=== PATIENT | female | born 1975 | race Hispanic/Latino ===

== ENCOUNTER 2022-12-24 05:35 | Observation (INO) | payer OTHER ==
[2022-12-20 14:59] LABS: BASOPHILS % (AUTO) 0.6 % (0.0-5.0); EOSINOPHILS % (AUTO) 0.6 % (0.0-8.0); HEMATOCRIT 36.1 % (36-48); LYMPHOCYTES % (AUTO) 19.5 % (21.0-51.0); MEAN CORPUSCULAR HEMOGLOBIN 27.6 pg (27.0-33.0); MEAN CORPUSCULAR HGB CONC 33.5 g/dL (32.0-36.0); MEAN CORPUSCULAR VOLUME 82.2 fL (79-99); NEUTROPHILS % (AUTO) 72.9 % (40.0-77.0); PLATELET COUNT (AUTO) 126 K/uL (130-400); RED BLOOD CELL COUNT(AUTO) 4.39 MIL/uL (4.00-5.50); RED CELL DISTRIBUTION WIDTH 13.8 % (11.0-15.5); WHITE BLOOD COUNT (AUTO) 13.7 K/uL (4.8-10.8)
[2022-12-20 15:06] LABS: APPEARANCE,URINE CLOUDY (CLEAR); BILIRUBIN,URINE NEGATIVE (NEGATIVE); COLOR,URINE YELLOW (YELLOW); GLUCOSE, URINE (UA) 200 mg/dL (NEGATIVE); KETONES,URINE 5 mg/dL (NEGATIVE); LEUKOCYTE ESTERASE ,URINE 250 Leu/uL (NEGATIVE); NITRATE,URINE NEGATIVE (NEGATIVE); OCCULT BLOOD,URINE NEGATIVE (NEGATIVE); PH,URINE 5.5 (5.0-8.0); PROTEIN,URINE 10 mg/dL (NEGATIVE); UROBILINOGEN,URINE 0.2 mg/dL (0.2-1.0)
[2022-12-20 15:16] LABS: BACTERIA,URINE MOD /HPF (None Seen); MUCUS,URINE FEW LPF (None Seen); SQUAMOUS EPITHELIAL CELL,UR FEW /HPF (0-2)
[2022-12-20 15:24] VITALS: BP 142/73
[~2022-12-24] VITALS: Ht 157.5 cm; Wt 70.8 kg
[2022-12-24] VITALS (27 sets, daily range): BP systolic 128–177; BP diastolic 51–81
[~2022-12-24 05:35] MED LIST: AEC81 PO; ASCORBIC ACID PO; ATOR40TA71 PO; CLOP75TA32 PO; ERGO500093 PO; FAMO40TA7 PO; FERR-82 PO; GLIP10TA19 PO; HYDR-4153 PO; HYDR25TA PO; IRON PO; LEVO100C4 PO; LOSA100T58 PO; METF-444 PO; METO100T14 PO; TIRZ5PEN SQ
[2022-12-24] MEDS ORDERED: 0.9%NACL 1000ML 1,000 ML IV ONE (05:42)
[2022-12-24] MEDS ORDERED: CEFAZOLIN SODIUM 2 GM VIAL IVPB SCH (06:00)
[2022-12-24] MEDS ORDERED: ONDANSETRON 4MG INJ ONE (07:17)
[2022-12-24] MEDS ORDERED: LIDOCAINE PF 100MG/5ML (2%) SYRINGE 5ML ONE (07:17)
[2022-12-24] MEDS ORDERED: PROPOFOL 10 MG/ML 20ML VIAL IV ONE (07:17)
[2022-12-24] MEDS ORDERED: MIDAZOLAM HCL 1 MG/ML 2ML VIAL ONE (07:17)
[2022-12-24] MEDS ORDERED: ROCURONIUM 10MG/1ML SYR 10 MG/ML ML ONE (07:17)
[2022-12-24] MEDS ORDERED: FENTANYL CITRATE PF 50 MCG/1 ML 2ML VIAL ONE ×4 (07:18→10:13)
[2022-12-24] MEDS ORDERED: CEFAZOLIN SODIUM 2 GM VIAL IVPB ONE (07:50)
[2022-12-24] MEDS ORDERED: PHENYLEPHRINE HCL 10 MG/ML 1ML VIAL IV ONE (08:09)
[2022-12-24] MEDS ORDERED: 0.9%NACL 10ML VIAL ONE (08:25)
[2022-12-24] MEDS ORDERED: GLYCOPYRROLATE 1 MG/5 ML SYRINGE ONE (08:35)
[2022-12-24] MEDS ORDERED: NEOSTIGMINE 5MG/5ML SYR IV ONE (08:35)
[2022-12-24] MEDS ORDERED: MORPHINE 2 MG SYG ONE ×2 (09:18→09:28)
[2022-12-24] MEDS ORDERED: MEPERIDINE-PF 75 MG/ML SYG IM PRN (11:30)
[2022-12-24] MEDS ORDERED: PROMETHAZINE HCL 25 MG/ML 1ML AMPULE IM PRN ×2 (11:30)
[2022-12-24] MEDS ORDERED: BISACODYL 10 MG SUPP.RECT RC PRN (11:30)
[2022-12-24] MEDS ORDERED: SIMETHICONE 80 MG TAB.CHEW PO PRN (11:30)
[2022-12-24] MEDS ORDERED: IBUPROFEN 600 MG TABLET PO PRN (11:30)
[2022-12-24] MEDS ORDERED: DOCUSATE SODIUM 100 MG CAP PO PRN (11:30)
[2022-12-24] MEDS: INSULIN HUMULIN R 100 UNIT/ML 3ML SQ SCH ×2 (11:48→21:00)
[2022-12-24] MEDS: CEPHALEXIN 500 MG CAPSULE PO SCH ×3 (13:41→21:07)
[2022-12-24] MEDS: LACTATED RINGERS 1000ML 1,000 ML IV SCH (18:35)
[2022-12-24] MEDS: ACETAMINOPHEN WITH CODEINE 1 TAB TAB PO PRN (19:54)
[2022-12-25] MEDS: LACTATED RINGERS 1000ML 1,000 ML IV SCH (00:35)
[2022-12-25] MEDS: ACETAMINOPHEN WITH CODEINE 1 TAB TAB PO PRN (03:20)
[2022-12-25 03:58] VITALS: BP 156/76
[2022-12-25 06:20] LABS: BASOPHILS % (AUTO) 0.3 % (0.0-5.0); EOSINOPHILS % (AUTO) 0.6 % (0.0-8.0); HEMATOCRIT 33.2 % (36-48); LYMPHOCYTES % (AUTO) 19.3 % (21.0-51.0); MEAN CORPUSCULAR HEMOGLOBIN 27.4 pg (27.0-33.0); MEAN CORPUSCULAR VOLUME 80.4 fL (79-99); NEUTROPHILS % (AUTO) 72.5 % (40.0-77.0); PLATELET COUNT (AUTO) 131 K/uL (130-400); RED BLOOD CELL COUNT(AUTO) 4.13 MIL/uL (4.00-5.50); RED CELL DISTRIBUTION WIDTH 13.7 % (11.0-15.5); WHITE BLOOD COUNT (AUTO) 11.9 K/uL (4.8-10.8)
[2022-12-25] MEDS: INSULIN HUMULIN R 100 UNIT/ML 3ML SQ SCH ×2 (07:18→12:33)
[2022-12-25 07:37] VITALS: BP 157/71
[2022-12-25] MEDS: CEPHALEXIN 500 MG CAPSULE PO SCH ×2 (08:52→12:27)
[2022-12-25 11:44] VITALS: BP 131/74
== END 2022-12-25 12:40 | disposition home or self-care (01) ==
LOC: DAH 05:35 → WSH 05:36 → DAH 05:36
PROVIDERS: ADMIT Obstetrics & Gynecology; ATTEND Obstetrics & Gynecology
DX: N81.4 Uterovaginal prolapse, unspecified (principal); Z20.822 Contact with and (suspected) exposure to COVID-19; N87.9 Dysplasia of cervix uteri, unspecified; K46.9 Unspecified abdominal hernia without obstruction or gangrene; E78.5 Hyperlipidemia, unspecified; E78.00 Pure hypercholesterolemia, unspecified; I10 Essential (primary) hypertension; K21.9 Gastro-esophageal reflux disease without esophagitis; E11.9 Type 2 diabetes mellitus without complications; I25.10 Atherosclerotic heart disease of native coronary artery without angina pectoris; E05.90 Thyrotoxicosis, unspecified without thyrotoxic crisis or storm; Z86.73 Personal history of transient ischemic attack (TIA), and cerebral infarction without residual deficits; Z79.899 Other long term (current) drug therapy
CPT/HCPCS: 84703; 85025 ×2; 86850 ×2; 86900 ×2; 86901 ×2; 87077; 87088; 87186; 87426; 81001; 36415 ×3; 58263; 96372 ×2; 82948 ×7; A6260; A4663; A4606; J3010 ×4; J3490; J2710; J7030; J2550; J2001; J2250; J2704; J2405; J2175; J2370; J1815 ×3; J0690 ×2; A4351; A4649; A4930; A4215; A4223; A4222; A4221; J7120 ×2; A4600; A4510; G0378 ×5

== ENCOUNTER → 2023-04-08 | Outpatient (CLI) | payer OTHER ==
[~2023-04-08] MED LIST changes: -LOSA100T58 PO; +LOSA100T59 PO
[2023-04-08 16:37] LABS: CHOLESTEROL 122 mg/dL (<200); HDL CHOLESTEROL 40 mg/dL (35-85); LDL DIRECT 68 mg/dL (0-99); TRIGLYCERIDES 90 mg/dL (30-200)
== END | disposition home or self-care (01) ==
LOC: LAB 14:35
PROVIDERS: ATTEND Student in an Organized Health Care Education/Training Program
DX: E78.5 Hyperlipidemia, unspecified (principal)
CPT/HCPCS: 36415; 80061